=== PATIENT | female | born 1985 | race Two or more races ===

== ENCOUNTER 2018-08-29 00:09 | Emergency (ER) | payer MEDICAID, OTHER ==
[~2018-08-29] VITALS: Ht 167.6 cm; Wt 63.5 kg
[2018-08-29 00:10] VITALS: BP 119/65
== END 2018-08-29 01:27 | disposition left against medical advice (07) ==
LOC: ER 00:09
DX: R10.9 Unspecified abdominal pain (principal); Z53.21 Procedure and treatment not carried out due to patient leaving prior to being seen by health care provider